=== PATIENT | female | born 1975 | race Caucasian/White ===

== ENCOUNTER 2023-10-30 03:16 | Emergency (ER) | payer MEDICARE, MEDICAID, SELFPAY ==
[2023-10-30 03:09] VITALS: BP 105/71; PULSE 82; O2SAT 100
[2023-10-30 03:20] VITALS: BP 115/77; PULSE 81; RESP 16; TEMP 37.1; O2SAT 98; BMI 29.3
--- NOTE | 2023-10-30 04:10 | ECG_ITS ---
Test Reason : syncope Blood Pressure : / mmHG Vent. Rate : 078 BPM Atrial Rate : 078 BPM P-R Int : 134 ms QRS Dur : 100 ms QT Int : 380 ms P-R-T Axes : 030 038 027 degrees QTc Int : 433 ms Normal sinus rhythm Normal ECG When compared with ECG of 17-NOV-2009 16:26, No significant change was found Referred By: Mamta Queen Electronically Signed By:ILIANA CHAKRABORTY MD
[2023-10-30 04:30] VITALS: BP 107/59; BP 108/66; PULSE 77; PULSE 83
[2023-10-30 04:31] VITALS: BP 95/64; PULSE 83
[2023-10-30 04:45] LABS: Basophils Percent Auto 0.2 % (0-2); Eosinophils Absolute Auto 0.1 X10*3/uL (0.0-0.4); Eosinophils Percent Auto 1.3 % (0-4); Hematocrit 40.5 % (37.0-47.0); Hemoglobin 13.9 g/dl (12.0-16.0); Imm Gran Abs Auto 0.02 X10*3/uL (0.00-0.03); Imm Gran Pct Auto 0.4 % (0.0-0.4); Lymphocytes Absolute Auto 0.4 X10*3/uL (1.2-4.9); Lymphocytes Percent Auto 8.2 % (20-40); MANUAL DIFF FLAG NO; Mean Corpuscular HGB Conc 34.3 g/dl (31.0-35.0); Mean Corpuscular Hemoglobin 31.4 pg (27.0-33.0); Mean Corpuscular Volume 91.4 fL (80.0-98.0); Mean Platelet Volume 9.1 fL (9.4-12.3); Monocytes Absolute Auto 0.4 X10*3/uL (0.1-1.2); Monocytes Percent Auto 8.6 % (2-11); Neutrophils Absolute Auto 3.9 x10*3/uL (2.0-8.3); Neutrophils Percent Auto 81.3 % (45-73); Platelet Count 163 X10*3/uL (160-400); Red Blood Count 4.43 X10*6/uL (4.20-5.50); Red Cell Distribution Width 12.5 % (11.0-16.0); White Blood Count 4.8 X10*3/uL (4.8-10.8)
[2023-10-30 04:51] LABS: Prothrombin Time 12.2 SEC (11.1-13.3)
[2023-10-30 04:54] LABS: Amphetamine Screen Urine Not Detected (Not Detect); Barbiturates, Urine Not Detected (Not Detect); Benzodiazepines Screen Urine Not Detected (Not Detect); Cannabinoid Screen Urine Not Detected (Not Detect); Cocaine Screen Urine Not Detected (Not Detect); Fentanyl, urine Not Detected (Not Detect); Opiate Screen Urine Not Detected (Not Detect); Phencyclidine Screen Urine Not Detected (Not Detect)
[2023-10-30 04:57] LABS: Ethanol < 10 mg/dL
[2023-10-30 05:06] LABS: Troponin-I High Sensitivity < 2.7 ng/L (<3.5-17.0)
[2023-10-30 05:06] LABS: Alanine Aminotransferase 21 U/L (0-31); Albumin Level 3.8 g/dL (3.5-5.0); Alkaline Phosphatase 73 U/L (39-117); Anion Gap 10 (12-20); Aspartate Amino Transferase 16 U/L (5-31); Bilirubin Direct 0.2 mg/dL (0.0-0.5); Bilirubin Total 0.6 mg/dL (0.0-1.0); Blood Urea Nitrogen 17 mg/dL (9-16); Calcium 8.4 mg/dL (8.4-10.2); Carbon Dioxide 25 mmol/L (22-29); Chloride 107 mmol/L (96-108); Estimated Glomerular Filt Rate > 60; Glucose Random 115 mg/dL (60-115); HCG Quantitative < 2 mIU/mL; Potassium 4.1 mmol/L (3.3-5.1); Sodium 138 mmol/L (135-145); Total Protein 6.8 g/dL (6.5-8.0)
[2023-10-30] MEDS: ondansetron HCL 4 MG/2 ML VIAL IVPUSH (06:36)
[2023-10-30] MEDS: 0.9 % Sodium Chloride 1,000 ML 999 ML IVCONT (06:36)
--- NOTE | 2023-10-30 06:55 | PC.NURSE ---
EMS line discontinued in left AC, would not flush. 20G IV reestablished in left forearm, no signs of infiltration or indication of pain. Pt has NS running wide open.
--- NOTE | 2023-10-30 07:05 | ED.ABDPAIN ---
HPI - Abdominal Pain General Chief Complaint: Abdominal Pain Stated Complaint: syncope Time Seen by Provider: 10/30/23 06:00 Source: patient and EMS Mode of arrival: EMS Limitations: no limitations History of Present Illness HPI narrative: Patient comes to the emergency room complaining of copious diarrhea, feeling dehydrated for 3 days and near syncope, feeling weak and dizzy while using the toilet and standing up. Patient denies chest pain or shortness of breath. Other than the diarrhea, patient denies any other recent illnesses. Patient states that her abdomen does not hurt significantly. But she has been having copious amounts of diarrhea and she feels very weak. Related Data Previous Rx's ?Medication ?Instructions ?Recorded ondansetron 4 mg disintegrating 4 mg PO Q6H PRN nausea and 10/30/23 tablet vomiting #14 tabs Allergies Allergy/AdvReac Type Severity Reaction Status Date / Time No Known Allergies Allergy Verified 10/30/23 03:27 Review of Systems Review of Systems Constitutional : No Weight loss, No Fever, No Chills, No Night Sweats, No Fatigue, No Malaise ENT/Mouth : No Hearing loss, No Ear Pain, No Nasal Congestion, No Sinus Pain, No Hoarseness, No sore throat, No Rhinorrhea, No Swallowing Difficulty Eyes: No Eye Pain, No Swelling, No Redness, No Foreign Body, No Discharge, No Vision Changes Cardiovascular : No Chest Pain, No SOB, No Dyspnea on Exertion, No Orthopnea, No Edema, No Palpitations Respiratory : No Cough, No Sputum, No Wheezing, No Smoke Exposure, No Dyspnea Gastrointestinal : No Nausea, No Vomiting, No Diarrhea, No Constipation, No abdominal Pain, No Hematochezia, No Melena Genitourinary : no irregular bleeding, No Dysuria, No Urinary Frequency, No Hematuria, No Urinary Incontinence, No Urgency, No Flank Pain, No Urinary Flow Changes, No Hesitancy Musculoskeletal : No joint pain, No Myalgias, No Joint Swelling Skin : No Skin Lesions, No rash Neuro : No Weakness, No Numbness, No Paresthesias, No Loss of Consciousness, No Dizziness, No Headache Psych : No Anxiety/Panic, No Depression, No SI/HI/AH/VH, No Social Issues, Heme/Lymph: No Bruising, No Bleeding,No Lymphadenopathy Endocrine : No Polyuria, No Polydipsia, No Temperature Intolerance [facility] Social History Social History Advance Directives: No Advance Directives Information Provided: Yes Physical Exam ED Vital Signs: Vital Signs - 24 hr 10/30/23 03:20 10/30/23 04:30 10/30/23 04:30 Temperature 98.8 F Pulse Rate 81 77 83 Respiratory Rate 16 Blood Pressure 115/77 108/66 107/59 L Pulse Oximetry 98 Oxygen Delivery Method Room Air 10/30/23 04:31 Temperature Pulse Rate 83 Respiratory Rate Blood Pressure 95/64 Pulse Oximetry Oxygen Delivery Method BMI result Body Mass Index 29.3 Medical Decision Making Medical Decision Making [facility] Narrative: -my interpretation of labs: White blood cell count, hematology hematocrit and platelets within normal limits. INR 1.0. Chemistry patient is a bit dehydrated, troponin negative, hCG quant negative -orthostatic vitals negative -I discussed with the patient unlikely she feels weak secondary to dehydration. Is possible the patient may have a vasovagal/orthostatic hypotension at home. Patient did not hit her head or lost consciousness. -patient states that she does not have significant abdominal pain -normal sinus rhythm, heart rate 78, no ST segment depression or elevation, no T-wave inversion, QTC 433 Differential Diagnosis Differential Diagnoses: The differential diagnosis associated with the presentation includes (Dehydration, vasovagal syncope, orthostatic hypotension) Admission/Observation Consideration of admission/observation: Escalation of care including admission/observation considered (Given patient's symptoms and presentation, patient was considered) Lab Data [facility] Lab Attestation statement: I reviewed the patient's lab results. 10/30/23 04:41 10/30/23 04:41 Labs: Lab Results 10/30/23 10/30/23 Range/Units 04:40 04:41 WBC 4.8 (4.8-10.8) X10*3/uL RBC 4.43 (4.20-5.50) X10*6/uL Hgb 13.9 (12.0-16.0) g/dl Hct 40.5 (37.0-47.0) % MCV 91.4 (80.0-98.0) fL MCH 31.4 (27.0-33.0) pg MCHC 34.3 (31.0-35.0) g/dl RDW 12.5 (11.0-16.0) % Plt Count 163 (160-400) X10*3/uL MPV 9.1 L (9.4-12.3) fL Immature Gran % (Auto) 0.4 (0.0-0.4) % Neut % (Auto) 81.3 H (45-73) % Lymph % (Auto) 8.2 L (20-40) % [place] % (Auto) 8.6 (2-11) % Eos % (Auto) 1.3 (0-4) % Baso % (Auto) 0.2 (0-2) % Lymph # (Auto) 0.4 L (1.2-4.9) X10*3/uL [place] # (Auto) 0.4 (0.1-1.2) X10*3/uL Eos # (Auto) 0.1 (0.0-0.4) X10*3/uL Baso # (Auto) 0.0 (0.0-0.2) X10*3/uL Abs Immat Gran (auto) 0.02 (0.00-0.03) X10*3/uL Absolute Neuts (auto) 3.9 (2.0-8.3) x10*3/uL Absolute Nucleated RBC 0.000 (0.0-0.012) X10*3/uL Nucleated RBC % (auto) 0.0 (0.0-0.2) /100WBC PT 12.2 (11.1-13.3) SEC INR 1.0 (0.9-1.1) Sodium 138 (135-145) mmol/L Potassium 4.1 (3.3-5.1) mmol/L Chloride 107 (96-108) mmol/L Carbon Dioxide 25 (22-29) mmol/L Anion Gap 10 L (12-20) BUN 17 H (9-16) mg/dL Creatinine 0.84 (0.5-1.4) mg/dL Estim Creat Clear Calc 75.0 Estimated GFR > 60 Random Glucose 115 (60-115) mg/dL Calcium 8.4 (8.4-10.2) mg/dL Total Bilirubin 0.6 (0.0-1.0) mg/dL Direct Bilirubin 0.2 (0.0-0.5) mg/dL AST 16 (5-31) U/L ALT 21 (0-31) U/L Alkaline Phosphatase 73 (39-117) U/L Troponin I High Sens < 2.7 (<3.5-17.0) ng/L Total Protein 6.8 (6.5-8.0) g/dL Albumin 3.8 (3.5-5.0) g/dL Beta HCG, Quant < 2 mIU/mL Urine Opiates Screen Not Detected (Not Detect) Urine Fentanyl Screen Not Detected (Not Detect) Ur Barbiturates Screen Not Detected (Not Detect) Ur Phencyclidine Scrn Not Detected (Not Detect) Ur Amphetamines Screen Not Detected (Not Detect) U Benzodiazepines Scrn Not Detected (Not Detect) Urine Cocaine Screen Not Detected (Not Detect) U Marijuana (THC) Screen Not Detected (Not Detect) Ethyl Alcohol < 10 mg/dL Medications Administered Discontinued Medications Generic Name Dose Route Start Last Admin Trade Name Freq PRN Reason Stop Dose Admin Sodium Chloride 1,000 mls @ 999 mls/hr 10/30/23 06:04 10/30/23 06:36 Ns IVCONT 10/30/23 07:04 999 mls/hr .Q1H1M ONE Administration Ondansetron HCl 4 mg 10/30/23 06:04 10/30/23 06:36 Ondansetron Hcl 4 Mg/2 Ml Vial IVPUSH 10/30/23 06:05 4 mg ONCE ONE Administration Critical Care Time Critical Care Time Critical Care Time: Yes Total Critical Care Time: 45 Attestation: I have personally provided critical care time. Time includes review of lab data, radiology results, discussion with consultants, and monitoring for potential decompensation. Intervention performed as documented. Discharge Plan Discharge Clinical Impression: Nausea vomiting and diarrhea, Vasovagal near syncope, Acute dehydration Patient Disposition: Home, Self-Care Instructions: Dehydration (ED), Syncope (ED), Acute Nausea and Vomiting (ED) Additional Instructions: Please follow-up with your primary care physician tomorrow. If you have any worsening or new symptoms, please return to the emergency room or call 911 Prescriptions: New ondansetron 4 mg tablet,disintegrating 4 mg PO Q6H PRN (Reason: nausea and vomiting) Qty: 14 0RF Stand Alone Forms: Work/School Release Print Language: Malagasy
[2023-10-30 07:38] VITALS: BP 98/58; PULSE 84; RESP 20; TEMP 36.6; O2SAT 98
== END 2023-10-30 07:40 | disposition home or self-care (01) ==
PROVIDERS: Emergency Provider Emergency Medicine
DX: E86.0 Dehydration (principal); R55 Syncope and collapse; R11.2 Nausea with vomiting, unspecified; R10.2 Pelvic and perineal pain; R06.02 Shortness of breath; M79.18 Myalgia, other site; Z32.00 Encounter for pregnancy test, result unknown; Z79.899 Other long term (current) drug therapy
CPT/HCPCS: 36415; 80048; 80076; 80307; 84484; 84702; 85025; 85610; 93005; 96361; 96374; 99284; 99285; J2405

== ENCOUNTER → 2023-10-30 04:10 | Outpatient (BNV) | payer MEDICARE, MEDICAID, SELFPAY | PROVIDERS: Emergency Provider Emergency Medicine; Visit Provider Internal Medicine Cardiovascular Disease | DX: R55 Syncope and collapse (principal) | CPT/HCPCS: 93010 ==